=== PATIENT | male | born 1990 | race Caucasian/White ===

== ENCOUNTER 2022-08-17 02:13 | Emergency (ER) | payer BC | END 2022-08-17 04:03 | disposition home or self-care (01) | LOC: JD.ED 02:13 | DX: N20.1 Calculus of ureter (principal); Z86.16 Personal history of COVID-19 | CPT/HCPCS: 74176; 74176-26; 81001; 99284 ==

== ENCOUNTER 2022-09-08 06:49 | Emergency (ER) | payer BC ==
[2022-09-08] MEDS ORDERED: Diphtheria,Pertussis(Acell),Tetanus Vaccine 0.5 ML Syringe IM ONE (07:38)
[2022-09-08] MEDS ORDERED: Lidocaine 1% 10 ML MDV INJECT ONE (07:38)
== END 2022-09-08 08:40 | disposition home or self-care (01) ==
LOC: JD.ED 06:49
DX: S61.411A Laceration without foreign body of right hand, initial encounter (principal); Z23 Encounter for immunization; W26.0XXA Contact with knife, initial encounter
CPT/HCPCS: 12002; 90471; 90715; 99282